=== PATIENT | female | born 1980 | race Caucasian/White ===

== ENCOUNTER 2019-11-02 07:19 | Emergency (ER) | payer MEDICAID, OTHER ==
[~2019-11-02] VITALS: Ht 165.1 cm; Wt 63.0 kg
[2019-11-02 07:22] VITALS: BP 130/72
--- NOTE | 2019-11-02 07:40 | NUR ---
Pt to rm 23 from [facility]
[2019-11-02] MEDS ORDERED: KETOROLAC 30 MG/1 ML ONE (07:57)
[2019-11-02] MEDS ORDERED: KETOROLAC 30 MG/1 ML IM ONE (08:00)
--- NOTE | 2019-11-02 08:01 | NUR ---
PT MED NOTED FOR PAIN 05/25, WARM BLANKET PLACED TO NECK, CALL LIGHT W/I REACH
--- NOTE | 2019-11-02 08:40 | NUR ---
PT RPTS NO CHANGE IN PAIN AFTER HEAT AND MEDICATIONS. RX FOR VALIUM GIVEN PT IS DRIVING HOME. Patient/Caregiver given discharge instructions and they have confirmed that they understand the instructions. Patient ambulatory with steady gait.
== END 2019-11-02 08:42 | disposition home or self-care (01) ==
LOC: ED 08:32
DX: S16.1XXA Strain of muscle, fascia and tendon at neck level, initial encounter (principal); G44.219 Episodic tension-type headache, not intractable; X58.XXXA Exposure to other specified factors, initial encounter; Y93.89 Activity, other specified; Y92.89 Other specified places as the place of occurrence of the external cause; Y99.8 Other external cause status
CPT/HCPCS: 96372; 99283; J1885

== ENCOUNTER 2020-11-03 11:05 | Emergency (ER) | payer MEDICAID, OTHER ==
[~2020-11-03] VITALS: Ht 165.1 cm; Wt 62.4 kg
--- NOTE | 2020-11-03 11:46 | NUR ---
PATIENT WALKED BACK FROM LOBBY WITH CHIEF C/O VAGINAL BLEEDING. PATIENT REPORTS LAST MENSTRUAL PERIOD WAS 10/08/2020 AND IS APPROXIMATELY 5 WEEKS . PATIENT STARTED BLEEDING ABOUT 1.5 DAYS AGO, ENDORSES CLOTS WITH BLEEDING AND LOW BACK PAIN, NO ABD CRAMPS, ABOUT 1 PAD PER HOUR. ER PROVIDER AT BEDSIDE FOR EVALUATION.
[2020-11-03 11:53] LABS: BASOPHILS % (AUTO) 1 % (0-1); EOSINOPHILS % (AUTO) 0 % (1-7); LYMPHOCYTES % (AUTO) 17 % (22-44); MEAN CORPUSCULAR HEMOGLOBIN 30.7 pg (27.0-34.8); MEAN CORPUSCULAR HGB CONC 33.7 g/dL (32.4-35.8); MEAN PLATELET VOLUME 7.9 fL (7.4-10.4); MONOCYTES % (AUTO) 9 % (2-9); NEUTROPHILS % (AUTO) 72 % (42-75); PLATELET COUNT 361 x10^3/uL (130-400); RED BLOOD COUNT 4.47 x10^6/uL (3.82-5.3); RED CELL DISTRIBUTION WIDTH 13.5 % (9.6-15.2)
[2020-11-03 11:54] LABS: MD NO
[2020-11-03 12:03] LABS: ALANINE AMINOTRANSFERASE 21 U/L (12-78); ALBUMIN 3.7 g/dL (3.4-5.0); ANION GAP 3 mmol/L (5-15); CALCIUM 8.9 mg/dL (8.5-10.1); CHLORIDE 108 mmol/L (98-107); CREATININE 0.73 mg/dL (0.55-1.02)
[2020-11-03 12:07] LABS: ALKALINE PHOSPHATASE 75 U/L (45-117); BILIRUBIN,TOTAL 0.4 mg/dL (0.2-1.0); TOTAL PROTEIN 7.1 g/dL (6.4-8.2)
[2020-11-03 12:29] LABS: MICROSCOPIC NOT IND
--- NOTE | 2020-11-03 12:46 | NUR ---
Harika guerra in [facility] - 11/03/20 at 1247 by [email or web address] ULTRASOUND AT BEDSIDE.
--- NOTE | 2020-11-03 12:47 | NUR ---
PATIENT TO ULTRASOUND.
[2020-11-03 13:26] VITALS: BP 122/76
--- NOTE | 2020-11-03 13:41 | NUR ---
PATIENT RESTING IN [facility] ON PHONE, JANNETTEN, VSS, CALL LIGHT WITHIN REACH, NO FURTHER NEEDS AT THIS TIME.
--- NOTE | 2020-11-03 13:49 | NUR ---
ERMD AT BEDSIDE TO DISCUSS POC.
--- NOTE | 2020-11-03 14:29 | NUR ---
Patient given discharge instructions and they have confirmed that they understand the instructions. Patient stable and ambulatory with steady gait from ED.
== END 2020-11-03 14:24 | disposition home or self-care (01) ==
LOC: ED 12:23
DX: O20.0 Threatened abortion (principal); M54.5 Low back pain; Z3A.01 Less than 8 weeks gestation of pregnancy
CPT/HCPCS: 36415; 76801; 80053; 81003; 84702; 85025; 86901; 99284

== ENCOUNTER → 2020-11-05 | Outpatient (CLI) | payer OTHER | END | disposition home or self-care (01) | LOC: LAB 11:18 | PROVIDERS: ATTEND Nurse Practitioner Family | DX: Z32.01 Encounter for pregnancy test, result positive (principal); N91.1 Secondary amenorrhea | CPT/HCPCS: 36415; 84702 ==

== ENCOUNTER → 2020-11-07 | Outpatient (CLI) | payer OTHER | END | disposition home or self-care (01) | LOC: LAB 09:42 | PROVIDERS: ATTEND Nurse Practitioner Family | DX: Z32.01 Encounter for pregnancy test, result positive (principal); N91.1 Secondary amenorrhea | CPT/HCPCS: 36415; 84702 ==

== ENCOUNTER 2021-07-31 10:05 | Outpatient (CLI) | payer OTHER ==
[2021-07-31 10:19] LABS: BASOPHILS % (AUTO) 1 % (0-1); EOSINOPHILS % (AUTO) 1 % (1-7); LYMPHOCYTES % (AUTO) 25 % (22-44); MEAN CORPUSCULAR HEMOGLOBIN 30.2 pg (27.0-34.8); MEAN CORPUSCULAR HGB CONC 34.2 g/dL (32.4-35.8); MEAN PLATELET VOLUME 7.5 fL (7.4-10.4); MONOCYTES % (AUTO) 11 % (2-9); NEUTROPHILS % (AUTO) 63 % (42-75); PLATELET COUNT 354 x10^3/uL (130-400); RED BLOOD COUNT 4.83 x10^6/uL (3.82-5.3); RED CELL DISTRIBUTION WIDTH 13.1 % (9.6-15.2)
[2021-07-31 10:30] LABS: ALANINE AMINOTRANSFERASE 28 U/L (12-78); ALBUMIN 3.9 g/dL (3.4-5.0); ANION GAP 7 mmol/L (5-15); CALCIUM 9.2 mg/dL (8.5-10.1); CHLORIDE 105 mmol/L (98-107)
[2021-07-31 10:43] LABS: ALKALINE PHOSPHATASE 88 U/L (45-117); BILIRUBIN,TOTAL 0.8 mg/dL (0.2-1.0); CHOL/HDL RATIO 3.4; CHOLESTEROL, TOTAL 209 mg/dL (140-239); HDL CHOL % 29 % (28-40); HDL CHOLESTEROL (DIRECT) 61 mg/dL (40-60); LDL CHOLESTEROL,CALCULATED 118 mg/dL (54-169); LDL/HDL RATIO 1.9 (0.5-3.0); TOTAL PROTEIN 7.5 g/dL (6.4-8.2); TRIGLYCERIDES 148 mg/dL (50-200); VLDL CHOLESTEROL 30 mg/dL (0-25)
== END 2021-07-31 23:59 | disposition home or self-care (01) ==
LOC: LAB 10:05
PROVIDERS: ATTEND Nurse Practitioner Family
DX: Z00.01 Encounter for general adult medical examination with abnormal findings (principal)
CPT/HCPCS: 36415; 80053; 80061; 82306; 83036; 84443; 85025